=== PATIENT | female | born 1960 | race Two or more races ===

== ENCOUNTER 2017-04-02 14:32 | Emergency (ER) | payer OTHER ==
[~2017-04-02] VITALS: Ht 154.9 cm; Wt 68.0 kg
[2017-04-02] MEDS ORDERED: OMEP20TA20 PO (15:08)
[2017-04-02] MEDS ORDERED: AMOX500T2 PO (15:08)
--- NOTE | 2017-04-02 16:21 | NUR ---
Patient discharged to home in stable conditon. Written and verbal after care instructions given. Patient verbalizes understanding of instructions.
== END 2017-04-02 16:21 | disposition home or self-care (01) ==
LOC: ER 14:35
DX: B02.9 Zoster without complications (principal)
CPT/HCPCS: A4663